=== PATIENT | male | born 1980 | race Hispanic/Latino ===

== ENCOUNTER 2018-05-17 18:51 | Emergency (ER) | payer OTHER, MEDICAID ==
[2018-05-17 18:59] VITALS: BMI 25.8
[2018-05-17] MEDS ORDERED: Tetracaine 0.5% Ophth 2 ML BOTTLE ONE (19:29)
[2018-05-17] MEDS ORDERED: Morphine 2 mg/ml ISec IM STA (19:39)
[2018-05-17 21:09] LABS: ALB/GLOB RATIO 1.2 (1.1-1.8); ALBUMIN 4.1 g/dL (3.0-4.8); ALT/SGPT 88 U/L (7-56); AST/SGOT 59 U/L (17-59); BLOOD UREA NITROGEN 18 mg/dL (7-21); CALCIUM 8.9 mg/dL (8.4-10.5); GFR AFRICAN-AMERICAN > 60; GFR NON-AFRICAN AMERICAN > 60
[2018-05-17 21:14] LABS: WHITE BLOOD COUNT 6.7 10^3/ul (4.5-11.0)
[2018-05-17 21:15] LABS: BASO # 0.05 K/mm3 (0.0-2.0); BASO % 0.7 % (0.0-3.0); EOS # 0.2 (0.0-0.7); GRAN # 3.43 (1.4-6.5); GRAN % 51.5 % (50.0-68.0); HEMOGLOBIN 14.7 g/dL (14.0-18.0); LYMPH # 2.3 (1.2-3.4); LYMPH % 34.2 % (22.0-35.0); MEAN CELL VOLUME 95.4 fl (80.0-105.0); MEAN CORPUSCULAR HEMOGLOBIN 32.2 pg (25.0-35.0); MEAN CORPUSCULAR HGB CONC 33.8 g/dl (31.0-37.0); MEAN PLATELET VOLUME 9.2 fl (7.0-11.0); MONO # 0.7 (0.1-0.6); MONO % 10.6 % (1.0-6.0); RBC 4.56 10^6/uL (3.5-6.1); RED CELL DISTRIBUTION WIDTH 12.9 % (11.5-14.5)
--- NOTE | 2018-05-17 21:15 | ED PDOC ---
Arrival/HPI - General Historian: Patient - History of Present Illness Time/Duration: Prior to Arrival Symptom Onset: Sudden Symptom Course: Unchanged Quality: Burning Severity Level: 10 <María Stover - Last Filed: 05/17/18 22:34> <Toñito Heredia - Last Filed: 05/19/18 15:31> - General Chief Complaint: Eye Problem Time Seen by Provider: 05/17/18 19:10 - History of Present Illness Narrative History of Present Illness (Text): 05/17/18 21:09 37yr old male presents today with bilateral eye pain, photophobia. 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 pt states he was fine at work but about 1 hour after getting home he developed severe burning pain to the eyes bilaterally. pt denies any trauma or injury. c/o burning, tearing, foreign body sensation. pt denies headaches, dizziness or weakness. no cp or sob. no vomiting/diarrhea. (María Stover) Past Medical History - Provider Review Nursing Documentation Reviewed: Yes - Travel History Have you recently traveled outside [place] w/in the past 3 mons?: No - Tetanus Immunization Tetanus Immunization: Unknown - Cardiac Hx Cardiac Disorders: No - Pulmonary Hx Respiratory Disorders: No - Neurological Hx Neurological Disorder: No - HEENT Hx HEENT Disorder: No - Renal Hx Renal Disorder: No - Endocrine/Metabolic Hx Endocrine Disorders: No - Hematological/Oncological Hx Hepatitis C: Yes - Integumentary Hx Psoriasis: Yes - Musculoskeletal/Rheumatological Hx Musculoskeletal Disorders: No - Gastrointestinal Hx Gastrointestinal Disorders: No - Genitourinary/Gynecological Hx Genitourinary Disorders: No - Psychiatric Hx Psychophysiologic Disorder: No Hx Substance Use: No <María Stover - Last Filed: 05/17/18 22:34> Family/Social History - Physician Review Nursing Documentation Reviewed: Yes Family/Social History: Unknown Family HX Smoking Status: Never Smoked Hx Alcohol Use: No Hx Substance Use: No <María Stover - Last Filed: 05/17/18 22:34> Allergies/Home Meds <María Stover - Last Filed: 05/17/18 22:34> <Toñito Heredia - Last Filed: 05/19/18 15:31> Allergies/Adverse Reactions: Allergies No Known Allergies Allergy (Verified 05/17/18 18:59) Review of Systems - Review of Systems Constitutional: absent: Fatigue, Fevers Eyes: Photophobia. absent: Vision Changes ENT: absent: Sinus Congestion Respiratory: absent: SOB, Cough Cardiovascular: absent: Chest Pain, Palpitations Gastrointestinal: absent: Abdominal Pain, Nausea, Vomiting Skin: absent: Rash, Pruritis Neurological: absent: Headache, Dizziness Psychiatric: absent: Anxiety, Depression <María Stover - Last Filed: 05/17/18 22:34> Physical Exam Vital Signs Reviewed: Yes Temperature: Afebrile Blood Pressure: Normal Pulse: Regular Respiratory Rate: Normal Appearance: Positive for: Well-Appearing, Non-Toxic, Comfortable Pain Distress: None Mental Status: Positive for: Alert and Oriented X 3 - Systems Exam Head: Present: Atraumatic. No: Swelling Pupils: Present: Pinpoint Extroacular Muscles: Present: EOMI Conjunctiva: Present: Injected, Other (no corneal abrasion or corneal ulceration , no foreign body, no hyphema) Mouth: Present: Moist Mucous Membranes Respiratory/Chest: Present: Clear to Auscultation Cardiovascular: Present: Regular Rate and Rhythm Neurological: Present: GCS=15 Skin: Present: Warm, Dry, Normal Color Psychiatric: Present: Alert, Oriented x 3 <María Stover - Last Filed: 05/17/18 22:34> Vital Signs Temp Pulse Resp BP Pulse Ox 05/17/18 22:42 98.3 F 85 18 148/80 100 05/17/18 22:03 81 16 119/62 97 05/17/18 21:44 87 16 110/52 L 96 05/17/18 18:52 98 F 88 18 101/52 L 98 Medical Decision Making Reassessment Condition: Re-examined, Improved <María Stover - Last Filed: 05/17/18 22:34> <Toñito Heredia - Last Filed: 05/19/18 15:31> ED Course and Treatment: 05/17/18 21:54 Patient is nontoxic well appearing . c/o bilateral eye burning, tearing after helping a person at work [place]. bilateral Conjunctival injection noted, pinpoint pupils extraocular muscles intact concern for photokeratitis; pt given toradol for pain with improvement. 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 i confirmed that dr. Elkins wants antibiotics with steroid. we do not have tobradex ointment, will give a dose of tobradex drops in er. cbc; wnl cmp; wnl visual acuity; 20/20 both eyes. pt reassessment; pt feeling much better; ambulating with steady gait. i discussed findings in depth with patient; advised f/u with eye doctor in 2 days. advised using ointment as directed. advised immediate return if symptoms worsen,persist or if new symptoms develop. Patient verbalizes understanding of discharge instructions and need for immediate followup. all aspects of this case were discussed the attending of record. Impression: photokeratitis Tobradex: apply 0.5in of ointment to both eyes 4 times daily Followup with the eye doctor within the next 2 days Return immediately if symptoms worsen persist or if new symptoms develop; blurry vision, worsening eye pain, worsening redness or any other concerning symptoms develop. Follow up with the primary care physician within the next 2 days (María Stover) - Lab Interpretations Lab Results: 05/17/18 20:25 05/17/18 20:25 Lab Results 05/17/18 20:25: WBC 6.7, RBC 4.56, Hgb 14.7, Hct 43.5, MCV 95.4, MCH 32.2, MCHC 33.8, RDW 12.9, Plt Count 216, MPV 9.2, Gran % 51.5, Lymph % (Auto) 34.2, [place] % (Auto) 10.6 H, Eos % (Auto) 3.0, Baso % (Auto) 0.7, Gran # 3.43, Lymph # (Auto ) 2.3, [place] # (Auto) 0.7 H, Eos # (Auto) 0.2, Baso # (Auto) 0.05 05/17/18 20:25: Sodium 145, Potassium 4.4, Chloride 105, Carbon Dioxide 28, Anion Gap 17, BUN 18, Creatinine 1.1, Est GFR ( Amer) > 60, Est GFR (Non- Af Amer) > 60, Random Glucose 136 H, Calcium 8.9, Total Bilirubin 0.3, AST 59, ALT 88 H, Alkaline Phosphatase 67, Total Protein 7.5, Albumin 4.1, Globulin 3.4 , Albumin/Globulin Ratio 1.2 - Medication Orders Current Medication Orders: Discontinued Medications Ketorolac Tromethamine (Toradol) 60 mg IM STAT STA Stop: 05/17/18 19:40 Last Admin: 05/17/18 20:01 Dose: 60 mg MAR Pain Assessment Document 05/17/18 20:01 (Rec: 05/17/18 20:01 RG [id number]) Pain Reassessment Is this a pain reassessment? 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 / has examined the patient and agrees with the treatment plan. <Toñito Heredia - Last Filed: 05/19/18 15:31> Disposition/Present on Arrival - Present on Arrival Any Indicators Present on Arrival: No History of DVT/PE: No History of Uncontrolled Diabetes: No Urinary Catheter: No History of Decub. Ulcer: No History Surgical Site Infection Following: None - Disposition Have Diagnosis and Disposition been Completed?: Yes Disposition Time: 21:58 Patient Plan: Discharge <María Stover - Last Filed: 05/17/18 22:34> <Toñito Heredia - Last Filed: 05/19/18 15:31> - Disposition Diagnosis: Photokeratitis Disposition: HOME/ ROUTINE Condition: GOOD Discharge Instructions (ExitCare): Photokeratitis ([facility]) Additional Instructions: Tobradex: apply 0.5in of ointment to both eyes 4 times daily Followup with the eye doctor within the next 2 days Return immediately if symptoms worsen persist or if new symptoms develop; blurry vision, worsening eye pain, worsening redness or any other concerning symptoms develop. Follow up with the primary care physician within the next 2 days Prescriptions: Tobramycin/Dexamethasone [Tobradex Eye Ointment] 1 appl OU QID #1 oint...g. Referrals: Anusha Hauser MD [Primary Care Provider] - Follow up with primary Will Elkins [Staff Provider] - Follow up with primary Forms: [employer]r ([place]), WORK NOTE
[2018-05-17] MEDS ORDERED: Tobramycin/Dexamethasone (Tobradex) Opth Sol (2.5 ml) OU STA (21:58)
[2018-05-17 22:44] VITALS: BP 148/80; PULSE 85; RESP 18; TEMP 98.3; O2SAT 100
== END 2018-05-17 23:27 | disposition home or self-care (01) ==
LOC: ED 18:51
DX: H16.133 Photokeratitis, bilateral (principal)
CPT/HCPCS: 80053; 85025; 96372; 99284; J1885